=== PATIENT | female | born 1975 | race Caucasian/White ===

== ENCOUNTER → 2017-08-31 | Outpatient (CLI) | payer BC ==
[2017-08-31 10:19] VITALS: BP 132/82; PULSE 82; RESP 12; TEMP 97.8; BMI 26.1
--- NOTE | 2017-08-31 10:56 | P.HPOB ---
History of Present Illness H&P Date: 08/31/17 Chief Complaint: Patients here for routine gynecologic exam. This is a 42-year-old with an LMP of 08/10/2017. The patient is without gynecologic complaints.Her menses are regular every month. Her is status post vasectomy. She has chosen not to do a screening mammogram because of concerns about radiation with mammography. Review of Systems Weight has been stable. She denies respiratory, cardiac, or G.I. problems. 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 She also has a history of vitiligo. 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 Medications and Allergies Home Medications Medication Instructions Recorded Confirmed Type No Known Home Medications [No 08/31/17 08/31/17 History Known Home Medications] Allergies Allergy/AdvReac Type Severity Reaction Status Date / Time Gluten Free AdvReac Severe Nausea & Uncoded 08/31/17 10:20 Vomiting Exam - Vital Signs Vital signs: Vital Signs Temp Pulse Resp BP 08/31/17 10:10 97.8 F 82 12 132/82 Intake and Output 08/30/17 08/31/17 08/31/17 22:59 06:59 14:59 Other: Weight 73.482 kg Height 5'6", BMI 26.1. This is a well-developed well-nourished white female who is alert and oriented times 3 in no acute distress. The patient has several non-pigmented areas of skin consistent with vitiligo which she has had for many years and has been stable. HEENT: Within normal limits. NECK: Supple without mass or thyromegaly. CHEST AND LUNGS: Clear to auscultation. HEART: Regular rate and rhythm. BREASTS: Are without mass or discharge. AXILLARY EXAM: Negative for adenopathy. BACK: Negative for CVA tenderness. ABDOMEN: Soft, nontender, without palpable masses. PELVIC EXAM: external genitalia has non-pigmented areas consistent with her vitiligo and this is been stable for many years. Cervix and vagina appear normal. There is no unusual discharge. There is no evidence of prolapse. The uterus is retroverted, nongravid size and nontender. There are no palpable adnexal masses or tenderness. RECTAL EXAM: negative for mass or tenderness and is negative for occult blood. EXTREMITIES: Nontender. The inner thighs have nonpigmented areas consistent with vitiligo. IMPRESSION: 1. 42-year-old gynecologically healthy female whose status post vasectomy. 2. Vitiligo which the patient has had for many years. PLAN: 1. Pap smear was deferred since she had a normal one last year. 2. Self breast awareness was discussed. 3. Screening mammogram was recommended. The patient is declining mammography. She will call if she changes her mind about this. 4. Osteoporosis prevention was discussed. 5. She will return in one year.
== END | disposition home or self-care (01) ==
LOC: WWCWWP 10:05
PROVIDERS: ATTEND Obstetrics & Gynecology
DX: Z53.9 Procedure and treatment not carried out, unspecified reason (principal)

== ENCOUNTER → 2019-01-03 | Outpatient (CLI) | payer BC ==
[2019-01-03 11:33] VITALS: BP 114/77; PULSE 96; RESP 16; TEMP 97.5; BMI 27.1
--- NOTE | 2019-01-03 12:12 | P.HPOB ---
History of Present Illness H&P Date: 01/03/19 Chief Complaint: The patient is here for her routine gynecologic exam. This is a 43-year-old with an LMP of 12/16/2018. The patient is without gynecologic complaints. She states her menses are regular every month. Her is status post vasectomy. She continues to choose not to do screening mammography because of concerns of false positives and false negative test results. She will consider doing mammograms after the age of 50. Review of Systems The patient has gained 7 pounds over the last year. She denies respiratory, cardiac, or G.I. problems. 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 She also has a history of vitiligo. 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 History of Any Multi-Drug Resistant Organisms: None Reported Past Surgical History: Cholecystectomy Past Psychological History: No Psychological Hx Reported Smoking Status: Never smoker Past Alcohol Use History: Occasional (3 to 5 per month) Past Drug Use History: None Reported Additional History: She is and is working part-time at a [employer] store [employer]. - Past Family History Mother Family Medical History: No Reported History Additional Family Medical History / Comment(s): A maternal aunt had breast cancer in her 80s. Father Family Medical History: No Reported History Additional Family Medical History / Comment(s): Paternal grandmother had leukemia. Colon cancer in a grandfather and grandmother. Medications and Allergies Home Medications Medication Instructions Recorded Confirmed Type No Known Home Medications 08/31/17 01/03/19 History Allergies Allergy/AdvReac Type Severity Reaction Status Date / Time Gluten Free AdvReac Severe Nausea & Uncoded 01/03/19 11:33 Vomiting Exam Vital Signs Temp Pulse Resp BP Pulse Ox 01/03/19 11:27 97.5 F L 96 16 114/77 100 Intake and Output 01/02/19 01/03/19 01/03/19 22:59 06:59 14:59 Other: Weight 76.204 kg Height 5'6", weight 168 pounds, BMI 27.1. This is a well-developed well-nourished white female who is alert and oriented times 3 in no acute distress. The patient has several non-pigmented areas of skin consistent with vitiligo which she has had for many years. HEENT: Within normal limits. NECK: Supple without mass or thyromegaly. CHEST AND LUNGS: Clear to auscultation. HEART: Regular rate and rhythm. BREASTS: Are without mass or discharge. AXILLARY EXAM: Negative for adenopathy. BACK: Negative for CVA tenderness. ABDOMEN: Soft, nontender, without palpable masses. PELVIC EXAM: the external genitalia has none pigmented areas which also extend to the inner thighs consistent with her vitiligo and this has been stable for many years. Cervix and vagina appear normal. There is no unusual discharge. There is no evidence of prolapse. The uterus is retroverted, nongravid size and nontender. There are no palpable adnexal masses or tenderness. RECTAL EXAM: negative for mass or tenderness and is negative for occult blood. EXTREMITIES: Nontender. IMPRESSION: 1. 43-year-old female with normal gynecologic exam whose is status post vasectomy. 2. Vitiligo which the patient has had for many years. PLAN: 1. Pap smear was performed. 2. Self breast awareness was discussed with the patient. 3. Screening management mammogram was recommended. The patient is declining mammography and states she will consider this at age 50. She will call if she changes her mind about this. 4. Osteoporosis prevention was discussed. I have stressed the importance of adequate calcium, vitamin D and regular exercise. Recommended amounts of calcium and vitamin D were also discussed. 5. She was advised to return in one year for her annual well woman exam.
== END | disposition home or self-care (01) ==
LOC: WWCWWP 11:18
PROVIDERS: ATTEND Obstetrics & Gynecology
DX: Z53.9 Procedure and treatment not carried out, unspecified reason (principal)

== ENCOUNTER → 2020-09-02 | Outpatient (CLI) | payer BC ==
[2020-09-02 11:38] VITALS: BP 136/82; PULSE 90; RESP 16; TEMP 97.8
--- NOTE | 2020-09-02 12:15 | P.HPOB ---
History of Present Illness H&P Date: 09/02/20 Chief Complaint: The patient is here for her routine gynecologic exam. This is a 45-year-old with an LMP of 08/18/2020. Her is status post vasectomy. The patient is without gynecologic complaints. The patient continues to choose not to do screening mammography until age 50. Review of Systems The patient has gained 4 pounds over the last year. She denies respiratory, cardiac, or G.I. problems. 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 She also has a history of vitiligo. 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 - Past Family History Mother Family Medical History: No Reported History Additional Family Medical History / Comment(s): A maternal aunt had breast cancer in her 80s. Father Family Medical History: No Reported History Additional Family Medical History / Comment(s): Paternal grandmother had leukemia. Colon cancer in a grandfather and grandmother. Medications and Allergies Home Medications Medication Instructions Recorded Confirmed Type No Known Home Medications 08/31/17 09/02/20 History Allergies Allergy/AdvReac Type Severity Reaction Status Date / Time Gluten Free AdvReac Severe Nausea & Uncoded 09/02/20 11:32 Vomiting Exam Vital Signs Temp Pulse Resp BP Pulse Ox 09/02/20 11:33 97.8 F 90 16 136/82 100 Intake and Output 09/01/20 09/02/20 09/02/20 22:59 06:59 14:59 Other: Weight 78.018 kg Height 5 feet 6 inches, weight 172 pounds, BMI 27.8. This is a well-developed well-nourished white female who is alert and oriented times 3 in no acute distress. The patient has several nonpigmented areas of the skin consistent with vitiligo which she has had for many years. HEENT: Within normal limits. NECK: Supple without mass or thyromegaly. CHEST AND LUNGS: Clear to auscultation. HEART: Regular rate and rhythm. BREASTS: Are without mass or discharge. AXILLARY EXAM: Negative for adenopathy. BACK: Negative for CVA tenderness. ABDOMEN: Soft, nontender, without palpable masses. PELVIC EXAM: Normal external genitalia the external genitalia has nonpigmented areas which extends to the inner thighs consistent with her vitiligo and this is stable from her previous exam. External genitalia is otherwise unremarkable. Cervix and vagina appear normal. The cervix is anterior in the vagina consistent with her retroverted uterus. There is no unusual discharge. There is no evidence of prolapse. The uterus is sharply retroverted which is unchanged from her previous exams, nongravid size and nontender. There are no palpable adnexal masses or tenderness. RECTAL EXAM: Rectovaginal exam is negative for mass or tenderness and is negative for occult blood. EXTREMITIES: Nontender. IMPRESSION: 1. 45-year-old perimenopausal female whose is status post vasectomy with normal gynecologic exam. 2. Vitiligo which the patient has had for many years. PLAN: 1. Pap smear was deferred since she had a normal one on 01/03/2019. 2. Self breast awareness was discussed with the patient. 3. Screening mammograms again declined by the patient. She states she will consider doing them after the age of 50. She understands that the risk is relatively low in her 40s, but a small number of breast cancers do occur in the 40s. 4. Osteoporosis prevention was discussed. I have stressed the importance of adequate calcium, vitamin D and regular exercise. Recommended amounts of calcium and vitamin D were also discussed. 5. She was advised to return in one year for her annual well woman exam.
== END ==
LOC: WWCWWP 11:27
PROVIDERS: ATTEND Obstetrics & Gynecology
DX: Z01.419 Encounter for gynecological examination (general) (routine) without abnormal findings (principal); L80 Vitiligo; Z87.891 Personal history of nicotine dependence

== ENCOUNTER → 2021-09-30 | Outpatient (CLI) | payer BC ==
[2021-09-30 10:49] VITALS: BP 122/76; PULSE 75; RESP 17; TEMP 98.6
--- NOTE | 2021-09-30 11:56 | P.HPOB ---
History of Present Illness H&P Date: 09/30/21 Chief Complaint: The patient is here for her routine gynecologic exam. This is a 46-year-old 023 with an LMP of 09/08/2021. The patient is without gynecologic complaints. Her is status post vasectomy. 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 Review of Systems The patient has lost 11 pounds over the last year. She denies respiratory, cardiac, or G.I. problems. 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 She also has a history of vitiligo. 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 History of Any Multi-Drug Resistant Organisms: None Reported Past Surgical History: Cholecystectomy Additional Past Surgical History / Comment(s): Oral gum grafting. Past Psychological History: No Psychological Hx Reported Smoking Status: Former smoker Past Alcohol Use History: Occasional (0-5 per month) Past Drug Use History: None Reported Additional History: She is . 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 - Past Family History Mother Family Medical History: No Reported History Additional Family Medical History / Comment(s): A maternal aunt had breast cancer in her 80s. Father Family Medical History: No Reported History Additional Family Medical History / Comment(s): Paternal grandmother had leukemia. Colon cancer in a grandfather and grandmother. Medications and Allergies Home Medications Medication Instructions Recorded Confirmed Type No Known Home Medications 08/31/17 09/30/21 History Allergies Allergy/AdvReac Type Severity Reaction Status Date / Time Gluten Free AdvReac Severe Nausea & Uncoded 09/30/21 10:44 Vomiting Exam Vital Signs Temp Pulse Resp BP Pulse Ox 09/30/21 10:45 98.6 F 75 17 122/76 99 Intake and Output 09/29/21 09/30/21 09/30/21 22:59 06:59 14:59 Other: Weight 73.028 kg Height 5 feet 6 inches, weight 161 pounds, BMI 26.0. This is a well-developed well-nourished white female who is alert and oriented times 3 in no acute distress. The patient has several nonpigmented areas of skin consistent with vitiligo which she has had for many years. HEENT: Within normal limits. NECK: Supple without mass or thyromegaly. CHEST AND LUNGS: Clear to auscultation. HEART: Regular rate and rhythm. BREASTS: Are without mass or discharge. AXILLARY EXAM: Negative for adenopathy. BACK: Negative for CVA tenderness. ABDOMEN: Soft, nontender, without palpable masses. PELVIC EXAM: External genitalia has areas of nonpigmented skin which extends to the inner thighs consistent with her vitiligo and is stable from her previous exam. The external genitalia is otherwise unremarkable. Cervix and vagina appear normal. The cervix is somewhat anterior consistent with her retroverted uterus. There is no unusual discharge. There is no evidence of prolapse. The uterus is sharply retroverted which is consistent with her previous exams, and is nongravid size and nontender. There are no palpable adnexal masses or tenderness. RECTAL EXAM: negative for mass or tenderness and is negative for occult blood. EXTREMITIES: Nontender. IMPRESSION: 1. 46-year-old female whose is status post vasectomy, with normal gynecologic exam. 2. Vitiligo which the patient has had for many years. PLAN: 1. Pap smear coat test was performed. 2. Self breast awareness was discussed with the patient. We have also discussed symptoms associated with inflammatory breast cancer. 3. Screening mammogram is again declined by the patient. She states she would like to start this at age 50. She was instructed to call if she changes her mt nd about this. 4. Osteoporosis prevention was discussed. 5. She has not had a Covid vaccination, but she thinks she has had Covid in the past. She understands the CDC recommends vaccination. She will consider this. 6. She was advised to return in one year for her annual well woman exam.
== END ==
LOC: WWCWWP 10:36
PROVIDERS: ATTEND Obstetrics & Gynecology
DX: Z01.419 Encounter for gynecological examination (general) (routine) without abnormal findings (principal); L80 Vitiligo; Z87.891 Personal history of nicotine dependence; Z91.018 Allergy to other foods

== ENCOUNTER → 2023-06-28 | Outpatient (CLI) | payer BC ==
[2023-06-28 11:21] VITALS: BP 123/58; PULSE 69; RESP 16; TEMP 97.9
--- NOTE | 2023-06-28 11:42 | P.HPOB ---
History of Present Illness H&P Date: 06/28/23 Chief Complaint: The patient is here for her routine gynecologic exam This is a 48-year-old 0-3 with an LMP of 06/06/2023. The patient's is status post vasectomy. Menstrual periods are monthly and these seem to be getting shorter. She is without gynecologic complaints. Review of Systems The patient has gained 8 pounds over the last year. She did lose weight intentionally, but has gained the weight back. She denies respiratory, cardiac, or G.I. problems. 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 She also has a history of vitiligo. 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 History of Any Multi-Drug Resistant Organisms: None Reported Past Surgical History: Cholecystectomy Additional Past Surgical History / Comment(s): Oral gum grafting. Colonoscopy approximately 2012. Past Psychological History: No Psychological Hx Reported Smoking Status: Former smoker Past Alcohol Use History: Occasional (0-5 drinks per month.) Additional Past Alcohol Use History / Comment(s): Quit smoking in her 20s. Past Drug Use History: None Reported Additional History: She is . 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 - Past Family History Mother Family Medical History: No Reported History Additional Family Medical History / Comment(s): A maternal aunt had breast cancer in her 80s. Father Family Medical History: No Reported History Additional Family Medical History / Comment(s): Paternal grandmother had leukemia. Colon cancer in a grandfather and grandmother. Medications and Allergies Home Medications Medication Instructions Recorded Confirmed Type No Known Home Medications 08/31/17 06/28/23 History Allergies Allergy/AdvReac Type Severity Reaction Status Date / Time Gluten Free AdvReac Severe Nausea & Uncoded 06/28/23 10:53 Vomiting Exam Vital Signs Temp Pulse Resp BP Pulse Ox 06/28/23 10:55 97.9 F 69 16 123/58 100 Intake and Output 06/27/23 06/28/23 06/28/23 22:59 06:59 14:59 Other: Weight 76.657 kg Height 5 feet 6 inches, weight 169 pounds, BMI 27.3. This is a well-developed well-nourished white female who is alert and oriented times 3 in no acute distress. The patient continues to have several nonpigmented areas of skin consistent with vitiligo which she has had for many years. HEENT: Within normal limits. NECK: Supple without mass or thyromegaly. CHEST AND LUNGS: Clear to auscultation. HEART: Regular rate and rhythm. BREASTS: Are without mass or discharge. AXILLARY EXAM: Negative for adenopathy. BACK: Negative for CVA tenderness. ABDOMEN: Soft, nontender, without palpable masses. PELVIC EXAM: External genitalia has areas of non-pigmented skin which extends to the inner thighs and this is stable from her previous exam. The external genitalia is otherwise unremarkable. Cervix and vagina appear normal. Cervix is somewhat anterior in the vagina consistent with her retroverted uterus. There is no unusual discharge. There is no evidence of prolapse. The uterus is markedly retroverted, nongravid size and nontender. There are no palpable adnexal masses or tenderness. RECTAL EXAM: negative for mass or tenderness and is negative for occult blood. EXTREMITIES: Nontender. IMPRESSION: 1. 48-year-old premenopausal female whose is status post vasectomy with normal gynecologic exam. 2. Vitiligo which the patient has had for many years PLAN: 1. Pap smear was deferred since she had a negative Pap smear cotest on 09/30/2021. 2. Self breast awareness was discussed with the patient. We have also discussed symptoms associated with inflammatory breast cancer. 3. Screening mammogram was declined by the patient. She would like to start mammogram screening at age 50. The patient has been offered screening mammography during her 40s. She will let me know if she changes her mind about starting in her 40s. 4. Osteoporosis prevention was discussed. I have stressed the importance of adequate calcium, vitamin D and regular exercise. Recommended amounts of calcium and vitamin D were also discussed. 5. Colorectal cancer screening was discussed with the patient. She will discuss this with her PCP. 6. She will keep a menstrual calendar and call if menstrual problems. 7. She was advised to return in one year for her annual well woman exam.
== END ==
LOC: WWCWWP 10:44
PROVIDERS: ATTEND Obstetrics & Gynecology
DX: L80 Vitiligo (principal); Z78.0 Asymptomatic menopausal state; Z87.891 Personal history of nicotine dependence; Z80.3 Family history of malignant neoplasm of breast; Z90.79 Acquired absence of other genital organ(s); Z98.890 Other specified postprocedural states; Z91.018 Allergy to other foods